=== PATIENT | male | born 1945 | race American Indian/Alaskan Native ===

== ENCOUNTER 2017-11-15 10:45 | Emergency (ER) | payer MEDICARE ==
[2017-11-15 11:21] VITALS: BP 120/67
--- NOTE | 2017-11-15 14:14 | Emergency Department Report ---
ED Extremity Problem HPI - General Chief complaint: Extremity Injury, Lower Stated complaint: NUMBNESS IN LEGS Time Seen by Provider: 11/15/17 14:09 Source: patient Mode of arrival: Ambulatory Limitations: No Limitations - History of Present Illness Initial comments: For the past 6 days, patient has had right lower leg decreased sensation. Denies trauma. Has been walking without difficulty. Has mild intermittent lower back pain. No history of incontinence. Never has had this before. Denies h/o diabetes. - Related Data Previous Rx's Medication Instructions Recorded Last Taken Type Prednisone 50 mg PO DAILY #4 tablet 11/15/17 Unknown Rx Allergies Allergy/AdvReac Type Severity Reaction Status Date / Time No Known Allergies Allergy Unverified 11/15/17 11:17 ED Review of Systems ROS: Stated complaint: NUMBNESS IN LEGS Other details as noted in HPI Comment: All other systems reviewed and negative Musculoskeletal: back pain Neurological: numbness. denies: abnormal gait ED Past Medical Hx - Past Medical History Previous Medical History?: Yes Hx Hypertension: Yes - Surgical History Past Surgical History?: No - Social History Smoking Status: Former Smoker Substance Use Type: Alcohol - Medications Home Medications: Home Medications Medication Instructions Recorded Confirmed Last Taken Type Prednisone 50 mg PO DAILY #4 tablet 11/15/17 Unknown Rx ED Physical Exam - General Limitations: No Limitations General appearance: alert, in no apparent distress - Head Head exam: Present: atraumatic, normocephalic - Eye Eye exam: Present: normal appearance - ENT ENT exam: Present: mucous membranes moist - Neck Neck exam: Present: normal inspection - Respiratory Respiratory exam: Absent: respiratory distress - Cardiovascular Cardiovascular Exam: Absent: systolic murmur, diastolic murmur, rubs, gallop - GI/Abdominal GI/Abdominal exam: Present: soft - Rectal Rectal exam: Present: deferred - Extremities Exam Extremities exam: Present: normal inspection - Expanded Lower Extremity Exam Right Hip exam: Present: normal inspection Upper Leg exam: Present: normal inspection Knee exam: Present: normal inspection Lower Leg exam: Absent: tenderness, swelling Ankle exam: Present: normal inspection Foot/Toe exam: Present: normal inspection Neuro vascular tendon exam: Present: no vascular compromise Gait: Positive: observed and normal - Back Exam Back exam: Present: normal inspection - Neurological Exam Neurological exam: Present: alert, oriented X3 - Psychiatric Psychiatric exam: Present: normal affect, normal mood - Skin Skin exam: Present: warm, dry, intact, normal color. Absent: rash ED Course Vital Signs 11/15/17 11:17 Temperature 98 F Pulse Rate 80 Respiratory 18 Rate Blood Pressure 120/67 O2 Sat by Pulse 97 Oximetry ED Medical Decision Making - Medical Decision Making 72-year-old male with history of hypertension that presents to the ER with right lower leg decreased sensation. Patient is well-appearing. Vitals are stable. Walking without difficulty. The extremity strength is 5 out of 5. No saddle anesthesia. Symptoms are not made worse with leg raise. Right foot is neurovascular intact. On clinical exam, patient has decreased sensation on his distal right lower leg on the dorsal surface of his lip. No evidence of vascular compromise or cauda equina. Patient denies history of trauma. No indication for imaging at this time. Likely patient suffering from radicular symptoms. We'll try a course of steroids. Patient will follow-up with his family doctor for reevaluation. Has been told to come back to the ER if the numbness starts spreading up his leg. He has no complaints with the left leg. - Differential Diagnosis cauda equina, claudication, arterial insufficiency, DVT, fracture Critical care attestation.: If time is entered above; I have spent that time in minutes in the direct care of this critically ill patient, excluding procedure time. ED Disposition Clinical Impression: Radiculopathy of leg Disposition: DC-01 TO HOME OR SELFCARE Is pt being admited?: No Does the pt Need Aspirin: No Condition: Stable Instructions: Lumbar Radiculopathy (ED) Additional Instructions: Please follow up with her family doctor for reevaluation. If the numbness starts spreading up your leg, return to the ER immediately. Prescriptions: Prednisone 50 mg PO DAILY #4 tablet
[2017-11-15] MEDS ORDERED: DELTASONE PO ONE (14:16)
== END 2017-11-15 14:30 | disposition home or self-care (01) ==
LOC: ED 10:45
DX: M54.16 Radiculopathy, lumbar region (principal); I10 Essential (primary) hypertension; Z87.891 Personal history of nicotine dependence
CPT/HCPCS: 99282; J7512

== ENCOUNTER 2017-12-21 07:00 | Inpatient (IN) | payer MEDICARE ==
[2017-12-21] MEDS ORDERED: DIPRIVAN 10 MG/ML IV ONE ×2 (09:07→09:39)
[2017-12-21] MEDS ORDERED: XYLOCAINE MPF 2% ONE ×2 (09:08→09:40)
[2017-12-21] MEDS ORDERED: ZEMURON IV ONE ×2 (09:08→09:40)
[2017-12-21] MEDS ORDERED: ZOFRAN ONE ×2 (09:08→14:19)
[2017-12-21] MEDS ORDERED: DILAUDID ONE ×2 (09:09→10:50)
--- NOTE | 2017-12-21 09:11 | Anesthesia Day of Surgery ---
Anesthesia Day of Surgery - Day of Surgery Patient Examined: Yes Patient H&P Reviewed: Yes Patient is NPO: Yes Beta Blockers: No Cardiac Clearance: No Pulmonary Clearance: No
[2017-12-21] MEDS ORDERED: FLAGYL 500 MG/100 ML 500 MG/100 ML BAG IV NR (09:13)
[2017-12-21] MEDS ORDERED: ANCEF/STERILE WATER 2 GM/20 ML IV NR (09:13)
--- NOTE | 2017-12-21 09:13 | Anesthesia Consultation ---
Anesthesia Consult and Med Hx - Airway Anesthetic Teeth Evaluation: Good ROM Head & Neck: Adequate Intubation Access Assessment: Good - Pulmonary Exam CTA: Yes - Cardiac Exam Cardiac Exam: RRR - Pre-Operative Health Status ASA Pre-Surgery Classification: ASA3 Proposed Anesthetic Plan: General (colon mass) - Pulmonary Hx Smoking: Yes (QUIT IN 2009) - Cardiovascular System Hx Hypertension: Yes (10 YEARS) - Central Nervous System Hx Back Pain: Yes Hx Psychiatric Problems: Yes - Hematic Hx Anemia: Yes - Other Systems Hx Alcohol Use: Yes (OCCA BEER) Hx Substance Use: No Hx Cancer: No
[2017-12-21] MEDS ORDERED: NACL BACTERIOSTATIC INFILTRATI ONE (09:15)
[2017-12-21] MEDS ORDERED: ePHEDrine 50 MG/5 ML-0.9% NACL IV ONE (09:22)
[2017-12-21] MEDS ORDERED: SUBLIMAZE ONE ×2 (09:39→13:15)
[2017-12-21] MEDS ORDERED: MARCAINE 0.25% INFILTRATI ONE ×2 (09:43→12:09)
[2017-12-21] MEDS ORDERED: XYLOCAINE 1% 20 mL ONE (09:43)
[2017-12-21] MEDS ORDERED: NACL 0.9% 1000 ML 1,000 ML IV SCH (10:00)
[2017-12-21] MEDS ORDERED: HEPARIN SUB-Q NR (10:03)
[2017-12-21 10:15] LABS: BUN/Creatinine Ratio 18; Blood Urea Nitrogen 11 mg/dL (9-20); Calcium 9.4 mg/dL (8.4-10.2); Hemolysis Index 14
[2017-12-21 10:30] LABS: Hematocrit 32.2 % (35.5-45.6); Mean Corpuscular HGB Conc 28 % (32-34); Mean Corpuscular Hemoglobin 18 pg (28-32); Mean Corpuscular Volume 64 fl (84-94); Platelet Count 410 K/mm3 (140-440); Red Blood Count 5.06 M/mm3 (3.65-5.03); Red Cell Distribution Width 28.2 % (13.2-15.2)
[2017-12-21] MEDS ORDERED: DECADRON ONE (10:51)
[2017-12-21] MEDS ORDERED: NEO SYNEPHRINE/NS Syringe(OR USE) IV ONE (11:03)
[2017-12-21 11:18] LABS: Total Cells Counted 100
[2017-12-21 11:20] LABS: Anisocytosis 2+
[2017-12-21 11:21] LABS: Hypochromasia 3+; Platelet Estimate Cons
[2017-12-21] MEDS ORDERED: XYLOCAINE 1% 20 mL INFILTRATI ONE (12:09)
[2017-12-21] MEDS ORDERED: NACL 0.9% IR ONE (12:09)
[2017-12-21] MEDS ORDERED: ROBINUL ONE (14:19)
[2017-12-21] MEDS ORDERED: BLOXIVERZ ONE (14:19)
[2017-12-21] MEDS ORDERED: ANCEF ONE (14:33)
[2017-12-21] MEDS ORDERED: LACTATED RINGERS 1,000 ML ONE (14:49)
[2017-12-21] MEDS ORDERED: ZOFRAN IV PRN (14:59)
[2017-12-21] MEDS ORDERED: D5W/0.45% NACL/KCL 20 MEQ 20 MEQ/1,000 ML BAG IV SCH (15:00)
[2017-12-21] MEDS ORDERED: DILAUDID IV PRN ×2 (15:03→17:49)
--- NOTE | 2017-12-21 15:06 | Post Operative Note ---
Date of procedure: 12/21/17 (Dictation#[id number]) Pre-op diagnosis: Right colon mass Post-op diagnosis: same Findings: tattoo in mid right colon. dense adhesions in ileocecal area. Dense attachments in hepatic flexure area. Procedure: Lap Right colon resection Anesthesia: SYED Surgeon: SID HERRERA Director Business Intelligence: CARLIE VASQUEZ Estimated blood loss: minimal Pathology: list (right colon) Specimen disposition: to lab Condition: stable Disposition: PACU
[2017-12-21] MEDS: DILAUDID IV PRN ×2 (15:40→15:50)
--- NOTE | 2017-12-21 16:24 | Post Anesthesia Evaluation ---
- Post Anesthesia Evaluation Patient Participated: Yes Airway Patent: Yes Stable Respiratory Function: Yes Nausea/Vomiting: No Pain Manageable: Yes Adequeate Hydration: Yes Anesthesia Complications: No Block Receding Appropriately: No Patient on Ventilator: No
[2017-12-21] MEDS: TORADOL IV SCH ×2 (17:39→23:22)
[2017-12-21] MEDS ORDERED: PNEUMOVAX 23 IM ONE (19:59)
[2017-12-21] MEDS: PEPCID IV SCH (21:44)
--- NOTE | 2017-12-21 21:46 | Operative Report ---
PREOPERATIVE DIAGNOSIS: Right colon mass with anemia. POSTOPERATIVE DIAGNOSES: Right colon mass with anemia. PROCEDURE: Laparoscopic right hemicolectomy with primary anastomosis (intracorporeal). ATTENDING PHYSICIAN: Lamont Matthews MD COMMODITY TRADER: Dr. Sifuentes. ANESTHESIA: General. ESTIMATED BLOOD LOSS: Minimal. FLUIDS: 1 liter. FINDINGS: Tattoo antonio in colon was in the right mid colon. Dense adhesions were noted in the ileocecal region as well as the hepatic flexure and the patient had a very large and thick omentum as well as significant mesenteric fat tissue. SPECIMEN: Right colon. DRAINS: None. COMPLICATIONS: None. Stable, transported to Recovery. INDICATIONS: This is a 72-year-old male who originally presented to the Emergency Room after a fall. He was found to be severely anemic. Workup revealed right colon mass. The patient was assessed to be in need for resection. Biopsy results came back as tubular adenoma. In discussion with the supervisor dental laboratory, he said the mass was very long and large. He would be unable to remove it completely. He recommended resection for complete evaluation and to minimize his risk of any small cancer that may remain. Procedure, risks, benefits were explained to the patient. Risks included but were not limited to infection, bleeding, pain, injury to surrounding structures, possible need for open surgery, possible need for ostomy, possible need for further procedures in the future. The patient understood and consented. OPERATIVE NOTE: The patient was brought to the operating room and placed on the table in supine position. After adequate general anesthesia was established, the patient was prepped and draped in the usual sterile fashion. Antibiotics had been given prior to start of the case. SCDs were in place. I began by placing a Veress needle in the left upper quadrant. Once we insufflated the abdomen, a 5 mm port was placed in the right lower quadrant. I entered the peritoneal cavity safely. We could see that the Veress needle did not injure any underlying structures. Veress needle was removed. We then placed a 12 mm port in the suprapubic region in the midline, 12-mm port in the left lower quadrant, and a 5 mm port in the left upper quadrant. We began by examining the abdomen. I saw no evidence of any metastatic spread of cancer. Liver appeared normal. There were no peritoneal implants: Appeared normal outside. We did see the tattoo antonio, which was in the mid body of the colon. Everything else appeared normal. We began by placing the omentum over the liver edge and then holding it there with the anesthesiologist assistant certified grasper. The patient was placed in reverse Trendelenburg and rotated to his left. Small bowel tried to be placed into the left side of the abdomen. However, all the small bowel would not sit there. It kept coming back towards the center. I began by identifying the ileocolic vessels. I dissected each out. Two clips were placed proximally, one distally on each vessel, and then were divided with the LigaSure device. We could see where the duodenum was. We planned our course of dissection towards that. We could also identify the middle colic vessels. Therefore, we used that as a landmark as well to take the dissection through the mesentery up to the colon. Once a small opening was made, we then did the medial dissection. We identified the correct plane between the retroperitoneum and the mesentery, it dissected fairly easily. There were little bit stronger adhesions, but otherwise they dissected okay where I encountered the right colic, which we clipped and divided with the LigaSure device, and then eventually the right middle colic, which we clipped and divided with the LigaSure device. Once most of this dissection was done, we then went above the colon, transverse colon to enter the lesser sac. We entered safely. We performed a dissection there. I removed the right half of the omentum attachment to the transverse colon and laid it off to the left side. At this point, we turned our attention to the lateral mobilization going along the white line of Toldt. I was able to enter this plane and have a nice dissection laterally of the colon. We encountered extra difficulty doing the dissection due to dense adhesions at the hepatic flexure and the ileocecal region. Extra care was taken. We had to manipulate the colon in different positions to get good visualization, but eventually we were able to safely divide all the connections. We divided the colon with a 60 mm laparoscopic stapler using a blue load and then we divided the small bowel near the TI with the similar stapler using a blue load. Specimen was placed in an EndoCatch bag, left on the side. We examined the retroperitoneal surface. The fascia was completely intact. We saw no bleeding. There was no hematoma formation. There were no tears. I was confident we had stayed in the right flank and there was no injury to the underlying structures. We then positioned the transverse colon and the small bowel to see how best it would lie. We made enterotomies into both, then using the 60 mm laparoscopic stapler with a blue load, I created an enterocolostomy. We closed the opening with the EndoStitch using the V-Loc 0 Vicryl suture. I ran the suture from one end of the opening to the other and then I put some additional sutures to support the junction between the colon and the small bowel a little bit away from where the anastomosis was made. I sutured the colon, small bowel together to take any tension off the anastomosis itself. With the same suture, I then tacked down the omentum over that anastomotic area to provide coverage of that area in case there was a small leak. We then cut the Vicryl suture and removed the needle. Everything was very hemostatic. I had no issues or concerns. At this point, I decided to go ahead and close the 12 mm port in the left lower quadrant using the Sanjeev-Rick closure device. We used an 0 Vicryl stitch under direct vision. We closed that space. It was airtight. It looked very good. I then finally turned my attention to removal of the specimen. We extended the suprapubic incision transversely and dissected down. We made a larger opening into the peritoneal cavity. Wound protector was placed. I then brought the EndoCatch bag through the wound protector. We had one Ray-Prema in the abdominal cavity for use in the case. This was removed through the wound protector. I then brought the EndoCatch bag partially through the wound protector. I opened it up and then removed the specimen. We were able to do so relatively easily. Once this was done, we then removed the wound protector using a 0 Prolene stitch. I closed the fascia with a running stitch. We reinsufflated the abdomen. We had an airtight closure. We did not injure any underlying bowel. There was no bowel or omentum adhered to the fascial repair. Everything looked very good. We then removed all the ports under direct vision and desufflated the abdomen. Additional local was injected into the port sites with 4-0 Monocryl subcuticular stitches were used to close the port and the small opening to extract the specimen. Skin was cleaned and dried. Dermabond was placed. The patient tolerated procedure well. There were no complications. All counts were correct at the end of the case. JOB# [id number] KESHA/ZAFAR
[2017-12-22] MEDS: TORADOL IV SCH ×4 (05:07→23:49)
[2017-12-22 08:35] LABS: Hematocrit 25.7 % (35.5-45.6); Hemoglobin 7.6 gm/dl (11.8-15.2); Mean Corpuscular HGB Conc 30 % (32-34); Mean Corpuscular Hemoglobin 19 pg (28-32); Mean Corpuscular Volume 63 fl (84-94); Platelet Count 269 K/mm3 (140-440); Red Blood Count 4.08 M/mm3 (3.65-5.03); Red Cell Distribution Width 27.4 % (13.2-15.2)
[2017-12-22 08:40] LABS: BUN/Creatinine Ratio 15; Blood Urea Nitrogen 12 mg/dL (9-20); Calcium 8.4 mg/dL (8.4-10.2); Hemolysis Index 5
[2017-12-22] MEDS: PEPCID IV SCH ×2 (09:30→21:07)
[2017-12-22] MEDS: LOVENOX SUB-Q SCH (09:30)
[2017-12-22 09:55] LABS: Anisocytosis 2+; Band Neutrophils # (Manual) 0.3 K/mm3; Basophils % (Manual) 0 % (0.0-1.8); Eosinophils % (Manual) 0 % (0.0-4.3); Hypochromasia 3+; Total Cells Counted 100
[2017-12-22 09:56] LABS: Platelet Estimate Consistent w Auto; Schistocytes Rare
[2017-12-22] MEDS ORDERED: KCL 10MEQ/100ML 10 MEQ/100 ML BAG IV PRN ×2 (11:12)
[2017-12-22] MEDS ORDERED: MAGNESIUM SULFATE 2GM/50ML 2 GM/50 ML BAG IV PRN (11:12)
[2017-12-22] MEDS ORDERED: SODIUM PHOSPHATE 30 MMOL in NACL 0.9% 500 ML 250 ML IV PRN (11:12)
[2017-12-22] MEDS ORDERED: MAGNESIUM SULFATE 4GM/100ML 4 GM/100 ML BAG IV PRN (11:12)
[2017-12-22] MEDS ORDERED: MAGNESIUM SULFATE 1 GM in NACL 0.9% 50 ML IV PRN (11:12)
[2017-12-22] MEDS ORDERED: SODIUM PHOSPHATE 15 MMOL in NACL 0.9% 250ML 150 ML IV PRN (11:12)
[2017-12-22] MEDS ORDERED: NORCO 5/325 PO PRN (11:18)
--- NOTE | 2017-12-22 11:22 | Progress Note ---
Assessment and Plan - Patient Problems (1) Colonic mass Current Visit: No Status: Acute Plan to address problem: Pt. Stable. s/p Lap Right hemicolectomy. 12/21/17 - POD#1. Pt looks good. No concerns. Hgb drop probably due to some OR loss and dilutional. Clinically looks good. REcheck in the AM. 1) HL IV later today 2) Replace K 3) REcheck CBC in AM 4) Clears tonight. 5) Ambulate Subjective Date of service: 12/22/17 Patient Reports: Positive: feels better, pain is less. Negative: nausea, vomiting Objective Vital Signs - 12hr 12/22/17 12/22/17 00:03 03:59 Temperature 98.5 F 98.8 F Pulse Rate 76 79 Respiratory 20 20 Rate Blood Pressure 116/67 116/58 O2 Sat by Pulse 94 94 Oximetry - General physical appearance no distress, no pain - Eyes normal occular movement - Respiratory normal expansion, normal respiratory effort - Abdomen soft, not tender, not distended, not guarding, not rigid, surgical scars (C/D/I) - Integumentary no rash, no growths, no abnormal pigmentation - Psychiatric oriented to time, oriented to person, oriented to place, speech is normal, memory intact - Labs 12/22/17 07:28 12/22/17 07:28 Diabetes panel 12/22/17 Range/Units 07:28 Sodium 139 (137-145) mmol/L Potassium 3.5 L (3.6-5.0) mmol/L Chloride 100.5 (98-107) mmol/L Carbon Dioxide 26 (22-30) mmol/L BUN 12 (9-20) mg/dL Creatinine 0.8 (0.8-1.5) mg/dL Glucose 104 H (75-100) mg/dL Calcium 8.4 (8.4-10.2) mg/dL Calcium panel 12/22/17 Range/Units 07:28 Calcium 8.4 (8.4-10.2) mg/dL Pituitary panel 12/22/17 Range/Units 07:28 Sodium 139 (137-145) mmol/L Potassium 3.5 L (3.6-5.0) mmol/L Chloride 100.5 (98-107) mmol/L Carbon Dioxide 26 (22-30) mmol/L BUN 12 (9-20) mg/dL Creatinine 0.8 (0.8-1.5) mg/dL Glucose 104 H (75-100) mg/dL Calcium 8.4 (8.4-10.2) mg/dL Adrenal panel 12/22/17 Range/Units 07:28 Sodium 139 (137-145) mmol/L Potassium 3.5 L (3.6-5.0) mmol/L Chloride 100.5 (98-107) mmol/L Carbon Dioxide 26 (22-30) mmol/L BUN 12 (9-20) mg/dL Creatinine 0.8 (0.8-1.5) mg/dL Glucose 104 H (75-100) mg/dL Calcium 8.4 (8.4-10.2) mg/dL
[2017-12-22] MEDS: K-DUR PO PRN ×2 (12:13→15:05)
[2017-12-23] MEDS: TORADOL IV SCH ×3 (05:32→18:19)
[2017-12-23 07:57] LABS: Hemoglobin 7.5 gm/dl (11.8-15.2); Mean Corpuscular HGB Conc 28 % (32-34); Mean Corpuscular Hemoglobin 18 pg (28-32); Mean Corpuscular Volume 64 fl (84-94); Platelet Count 233 K/mm3 (140-440); Red Blood Count 4.25 M/mm3 (3.65-5.03); Red Cell Distribution Width 27.4 % (13.2-15.2)
--- NOTE | 2017-12-23 09:34 | Progress Note ---
Assessment and Plan - Patient Problems (1) Colonic mass Current Visit: No Status: Acute Plan to address problem: Pt. Stable. s/p Lap Right hemicolectomy. 12/21/17 - POD#2. Pt looks good. No concerns. hgb stable. 1) soft diet for dinner 2) Begin Iron supplement 3) stool softener 4) possible d/c home tomorrow. Subjective Date of service: 12/23/17 Patient Reports: Positive: no new complaints, feels better, pain is less, tolerating liquids well, bowel movement. Negative: nausea, vomiting Objective Vital Signs - 12hr 12/22/17 12/22/17 12/23/17 22:00 23:49 00:58 Temperature 99.5 F Pulse Rate 85 Respiratory 18 18 17 Rate Respiratory 18 Rate [Right Leg ] Blood Pressure 109/81 O2 Sat by Pulse 95 Oximetry 12/23/17 12/23/17 12/23/17 04:01 04:02 05:32 Temperature 98.0 F Pulse Rate 80 78 Respiratory 20 18 Rate Respiratory Rate [Right Leg ] Blood Pressure 118/53 O2 Sat by Pulse 96 96 Oximetry 12/23/17 08:14 Temperature 98.7 F Pulse Rate 72 Respiratory 18 Rate Respiratory Rate [Right Leg ] Blood Pressure 128/74 O2 Sat by Pulse 96 Oximetry - General physical appearance no distress, no pain, other (looks great) - Eyes normal occular movement - Respiratory normal expansion, normal respiratory effort - Abdomen soft, not tender, bowel sounds hypoactive, not distended, not guarding, not rigid, surgical scars (C/D/I) - Integumentary no rash, no growths, no abnormal pigmentation - Psychiatric oriented to time, oriented to person, oriented to place, speech is normal, memory intact - Labs 12/23/17 06:28 12/22/17 16:37 Diabetes panel 12/22/17 Range/Units 16:37 Potassium 4.1 (3.6-5.0) mmol/L Pituitary panel 12/22/17 Range/Units 16:37 Potassium 4.1 (3.6-5.0) mmol/L Adrenal panel 12/22/17 Range/Units 16:37 Potassium 4.1 (3.6-5.0) mmol/L
--- NOTE | 2017-12-23 09:39 | Discharge Summary ---
Providers - Providers Date of Admission: 12/21/17 08:05 Date of discharge: 12/24/17 Attending physician: SID HERRERA MD 12/22/17 08:36 Physical Therapy Evaluation and Treat [CONS] Routine Comment: S/P COLON RESECTION Reason For Exam: Generalized weakness Primary care physician: NANOSCIENCE TECHNICIAN Hospitalization Reason for admission: Scheduled Surgical Procedure Condition: Stable Pertinent studies: none Procedures: Laparoscopic Right hemicolectomy Hospital course: Patient was admitted on day of surgery. There were no issues during surgery. Postoperatively, hospital course was uneventful. Dietrich catheter was removed the following morning. He was on Lovenox for prophylaxis. This diet was advanced without difficulty. He had a bowel movement on postoperative day one. He was ambulating without difficulty. Pain was minimal. He was discharged in stable condition. Pathology showed only tubular adenoma. No evidence of cancer. Disposition: DC-01 TO HOME OR SELFCARE Time spent for discharge: 30min - Discharge Diagnoses (1) Colonic mass Status: Acute Core Measure Documentation - Palliative Care Palliative Care/ Comfort Measures: Not Applicable - Core Measures Any of the following diagnoses?: none - VTE Discharge Requirements Deep Vein Thrombosis/Pulmonary Embolism Present on Admission: No Exam - Constitutional Vitals: Temp Pulse Resp BP Pulse Ox 98.7 F 72 18 128/74 96 12/23/17 08:14 12/23/17 08:14 12/23/17 08:14 12/23/17 08:14 12/23/17 08:14 General appearance: Present: no acute distress, well-nourished - EENT Eyes: Present: EOM intact - Respiratory Respiratory effort: normal - Extremities Extremities: No edema, normal temperature, normal color - Abdominal General gastrointestinal: Present: soft, non-tender, non-distended, other ( Incisions C/D/I) - Integumentary Integumentary: Present: clear, warm, dry - Psychiatric Psychiatric: appropriate mood/affect, intact judgment & insight Plan Diet: regular Wound: open to air, keep clean and dry, other (May shower today. Pat dry wounds. No baths!) Special Instructions: no heavy lifting (or strenuous activity for 6 weeks) Follow up with: ELY YAN MD [Primary Care Provider] - 7 Days SID HERRERA MD [Staff Physician] - 14 Days Prescriptions: Sennosides Tab [Senokot] 8.6 mg PO QHS #14 tablet HYDROcodone/APAP 5-325 [[place] 5-325 mg TAB] 1 each PO Q6H PRN #20 tablet PRN Reason: Pain, Moderate (4-6)
[2017-12-23] MEDS: PEPCID IV SCH ×2 (10:30→21:52)
[2017-12-23] MEDS: LOVENOX SUB-Q SCH (10:30)
[2017-12-23] MEDS: FERGON PO SCH (10:30)
[2017-12-23] MEDS ORDERED: SENOKOT PO SCH (22:00)
[2017-12-24] MEDS: TORADOL IV SCH ×2 (02:59→06:05)
[2017-12-24] MEDS: PEPCID IV SCH (09:19)
[2017-12-24] MEDS: FERGON PO SCH (09:19)
[2017-12-24] MEDS: LOVENOX SUB-Q SCH (09:19)
[2017-12-24 14:35] VITALS: BP 113/68
== END 2017-12-24 15:00 | disposition home or self-care (01) | DRG 330 ==
LOC: 3A 08:05 → 3B-SURG 15:47
PROVIDERS: ADMIT Surgery; ATTEND Surgery
PROC: 0DTF4ZZ Resection of Right Large Intestine, Percutaneous Endoscopic Approach (ICD-10-PCS; principal; 2017-12-21)
PROC: 0DNB4ZZ Release Ileum, Percutaneous Endoscopic Approach (ICD-10-PCS; 2017-12-21)
PROC: 3E0234Z Introduction of Serum, Toxoid and Vaccine into Muscle, Percutaneous Approach (ICD-10-PCS; 2017-12-21)
DX: D12.2 Benign neoplasm of ascending colon (principal); D62 Acute posthemorrhagic anemia; K63.89 Other specified diseases of intestine; I10 Essential (primary) hypertension; F32.9 Major depressive disorder, single episode, unspecified; K66.0 Peritoneal adhesions (postprocedural) (postinfection); M19.90 Unspecified osteoarthritis, unspecified site; E88.2 Lipomatosis, not elsewhere classified; Z87.891 Personal history of nicotine dependence; Z72.89 Other problems related to lifestyle; Z23 Encounter for immunization
CPT/HCPCS: 36415; 80048; 84132; 85007; 85025; 85027; 86850; 86900; 86901; 88307; 88309; 90732; J0690; J1100; J1170; J1644; J1650; J1885; J2370; J2405; J2704; J2710; J3010; J3475; J3480; J7030; J7120

== ENCOUNTER 2018-09-27 07:15 | Day surgery (SDC) | payer MEDICARE ==
[~2018-09-27 07:15] MED LIST: ANCEF/STERILE WATER 2 GM/20 ML 2 GM/20 ML SYRINGE IV NR; LACTATED RINGERS 1,000 ML IV SCH; NEURONTIN PO SCH; TYLENOL PO ONE
[2018-09-27] MEDS ORDERED: XYLOCAINE MPF 2% ONE (07:50)
[2018-09-27] MEDS ORDERED: SUBLIMAZE ONE (07:51)
[2018-09-27] MEDS ORDERED: DIPRIVAN 10 MG/ML IV ONE (07:52)
[2018-09-27] MEDS ORDERED: VERSED IV NR (08:06)
[2018-09-27] MEDS ORDERED: SUBLIMAZE IV PRN (08:25)
--- NOTE | 2018-09-27 08:27 | Anesthesia Consultation ---
Anesthesia Consult and Med Hx Date of service: 09/27/18 - Airway Anesthetic Teeth Evaluation: Dentures ROM Head & Neck: Adequate Mental/Hyoid Distance: Adequate Mallampati Class: Class III Intubation Access Assessment: Possibly Difficult - Pulmonary Exam CTA: Yes - Cardiac Exam Cardiac Exam: RRR - Pre-Operative Health Status ASA Pre-Surgery Classification: ASA2 Proposed Anesthetic Plan: MAC - Pulmonary Hx Smoking: Yes (quit x 11 yrs) Hx Respiratory Symptoms: No COPD: No - Cardiovascular System Hx Hypertension: Yes (no antihypertensives today) Hx Heart Attack/AMI: No Hx Percutaneous Transluminal Coronary Angioplasty (PTCA): No - Central Nervous System CVA: No Hx Back Pain: Yes Hx Psychiatric Problems: Yes - Gastrointestinal Hx Gastroesophageal Reflux Disease: No - Endocrine Hx Renal Disease: No Hx Liver Disease: No Hx Insulin Dependent Diabetes: No Hx Non-Insulin Dependent Diabetes: No Hx Thyroid Disease: No - Hematic Hx Anemia: Yes - Other Systems Hx Alcohol Use: Yes (OCCA BEER) Hx Obesity: No - Additional Comments Anesthesia Medical History Comments: No hx anesthetic complications.
--- NOTE | 2018-09-27 08:27 | Anesthesia Day of Surgery ---
Anesthesia Day of Surgery - Day of Surgery Patient Examined: Yes Patient H&P Reviewed: Yes Patient is NPO: Yes
[2018-09-27] MEDS ORDERED: TYLENOL PO ONE (08:30)
[2018-09-27] MEDS ORDERED: XYLOCAINE 1%/ EPI 1:100,000 INFILTRATI ONE ×3 (09:26→09:54)
[2018-09-27] MEDS ORDERED: MARCAINE 0.5% INFILTRATI ONE ×2 (09:54)
[2018-09-27] MEDS ORDERED: NACL 0.9% IR ONE (09:54)
[2018-09-27] MEDS ORDERED: TORADOL ONE (10:16)
[2018-09-27] MEDS ORDERED: ZOFRAN ONE (10:16)
--- NOTE | 2018-09-27 10:47 | Short Stay Summary ---
Short Stay Documentation Date of service: 09/27/18 - History H&P: obtained from office - Allergies and Medications Current Medications: Allergies No Known Allergies Allergy (Verified 09/26/18 17:35) Home Medications Medication Instructions Recorded Confirmed Last Taken Type Ferrous Sulfate 325 mg PO BID #60 tablet. 11/22/17 09/27/18 07/30/18 Rx Mirtazapine 15 mg PO QHS 09/26/18 09/27/18 09/26/18 History hydroCHLOROthiazide [HCTZ] 25 mg PO DAILY 09/26/18 09/27/18 09/27/18 04:45 History Active Medications Fentanyl (Sublimaze) 50 mcg IV Q5MIN PRN PRN Reason: Pain , Severe (7-10) Stop: 09/27/18 20:00 Gabapentin (Neurontin) 600 mg PO PREOP BRIAN Last Admin: 09/27/18 08:42 Dose: 600 mg Documented by: Cefazolin Sodium (Ancef/Sterile Water 2 Gm/20 Ml) 2 gm in 20 mls @ 80 mls/hr IV PREOP NR; Protocol Stop: 09/27/18 23:59 Lactated Ringer's (Lactated Ringers) 1,000 mls @ 75 mls/hr IV DIRECT BRIAN Last Admin: 09/27/18 08:05 Dose: 75 mls/hr Documented by: Midazolam HCl (Versed) 2 mg IV PREOP NR Stop: 09/27/18 23:59 Last Admin: 09/27/18 08:50 Dose: 2 mg Documented by: - Physical exam General appearance: no acute distress Lungs: Normal air movement Neurological: Normal speech - Brief post op/procedure progress note Date of procedure: 09/27/18 (dictation:[id number]) Pre-op diagnosis: right neck soft tissue mass Post-op diagnosis: same Procedure: Excision of right neck soft tissue mass IVF 700cc Anesthesia: GETA Findings: soft, lipomatous mass in the subcutaneous tissue. About 3cm in longest length Surgeon: SID HERRERA Estimated blood loss: minimal Pathology: list (lipomatous mass) Specimen disposition: to lab Condition: stable - Disposition Condition at discharge: Stable Disposition: DC-01 TO HOME OR SELFCARE Short Stay Discharge Plan Activity: advance as tolerated Diet: regular Wound: open to air, keep clean and dry, other (apply ice pack to wound for 10-15min/4-5 times a day. May shower tomorrow. Pat dry wound. ) Special Instructions: no heavy lifting (or strenuous activity for 1 week) Follow up with: CHARAN GILLILAND MD [Primary Care Provider] - 7 Days SID HERRERA MD [Staff Physician] - 14 Days Forms: [facility]patient [facility] Inst[facility] Work/School Release Form Prescriptions: HYDROcodone/ACETAMINOPHEN [[place] 5-325 Tablet] 1 each PO Q6H PRN #20 tablet PRN Reason: Pain , Severe (7-10)
--- NOTE | 2018-09-27 12:37 | Operative Report ---
PREOPERATIVE DIAGNOSIS: Right neck soft tissue mass. POSTOPERATIVE DIAGNOSIS: Right neck soft tissue mass. PROCEDURE: Excision of right neck soft tissue mass. ATTENDING PHYSICIAN: Lamont Matthews MD ANESTHESIA: General. ESTIMATED BLOOD LOSS: Minimal. FLUIDS: 700 mL. FINDINGS: Lipomatous mass about 3 cm in longest dimension in the subcutaneous layer of the right posterior neck. SPECIMEN: Lipomatous mass. DRAINS: None. COMPLICATIONS: None. DISPOSITION: Stable, transferred to Recovery Room. INDICATIONS: This is a 73-year-old male who we had known before after performing colon surgery. He returns with complaints of discomfort and irritation from a mass in his neck. The patient was assessed to have probable lipoma that was in need of excision. Due to the location, we felt it would be best to be performed in the operating room. Procedure, risks, and benefits were explained to the patient. Risks included but were not limited to infection, bleeding, pain, injury to surrounding structures, possible need for further procedures in the future. The patient understood and consented. OPERATIVE PROCEDURE: The patient was brought to the operating room and placed on the table in supine position. After adequate general anesthesia was established, the patient was prepped and draped in usual sterile fashion. The patient was in a left lateral decubitus position. All pressure points were secured. Axillary roll was placed. He was secured with a beanbag. SCDs were in place. Antibiotics have been given. Timeout was called. The mass and skin lines were already marked out in the preop holding area. I confirmed where the skin lines were and then placed my incision in the general direction. Dissection was carried down through the skin and dermis to the mass. The mass was very superficial. We dissected out from the surrounding tissue. This was a fairly distinct mass with a little bit of regular subcutaneous tissue around it. We dissected it with a combination of blunt and electrocautery dissection to separate from the surrounding tissue. Once , it was passed off table in sterile fashion. We checked the area for hemostasis. We had fairly good hemostasis. The wound was thoroughly irrigated. I used 3-0 Vicryl to close the subcutaneous and deep layers with a running stitch. Local was injected and then we closed the skin with a running 4-0 Monocryl subcuticular stitch. Skin was cleaned and dried. Dermabond was placed. The patient tolerated procedure well. There were no complications. All counts were correct at the end of the case. I spoke to the at the end of the case. JOB# [id number] KESHA/ZAFAR
--- NOTE | 2018-09-27 14:15 | Post Anesthesia Evaluation ---
- Post Anesthesia Evaluation Patient Participated: Yes Airway Patent: Yes Stable Respiratory Function: Yes Nausea/Vomiting: No Temp > 96.8F: Yes Pain Manageable: Yes Adequeate Hydration: Yes Anesthesia Complications: No
[2018-09-27 20:43] VITALS: BP 106/59
== END 2018-09-27 07:16 | disposition home or self-care (01) ==
LOC: OR 07:15
PROVIDERS: ATTEND Surgery
DX: D17.0 Benign lipomatous neoplasm of skin and subcutaneous tissue of head, face and neck (principal); D50.0 Iron deficiency anemia secondary to blood loss (chronic); I10 Essential (primary) hypertension; M19.90 Unspecified osteoarthritis, unspecified site; F32.9 Major depressive disorder, single episode, unspecified; Z72.89 Other problems related to lifestyle; Z79.899 Other long term (current) drug therapy; Z87.891 Personal history of nicotine dependence
CPT/HCPCS: 21552; 88307; A4217; J0690; J1885; J2250; J2405; J2704; J3010; J7120; 88304

== ENCOUNTER 2019-12-23 08:08 | Emergency (ER) | payer MEDICARE ==
[2019-12-23 08:15] VITALS: BP 130/61
--- NOTE | 2019-12-23 11:08 | Emergency Department Report ---
ED General Adult HPI - General Chief complaint: Extremity Problem,Nontraumatic Stated complaint: LEG PAIN Time Seen by Provider: 12/23/19 09:44 Source: patient Mode of arrival: Ambulatory Limitations: No Limitations - History of Present Illness Initial comments: 74-year-old male with emergency department complaining of continued leg aches he was seen here on yesterday for leg swelling reports that there is been no worsening in symptoms no change in symptoms states is primarily reasons that he is hungry and he is homeless and his kicked him out of the house on 15 December he had no place to go at the time inquiring about the times that we serve lunch and if we can do anything to help him with food and give him some Tylenol or Motrin at current for his pain - Related Data Home Medications Medication Instructions Recorded Confirmed Last Taken Mirtazapine 15 mg PO QHS 09/26/18 12/22/19 2 Days Ago ~12/20/19 7.5 hydroCHLOROthiazide [HCTZ] 25 mg PO DAILY 09/26/18 12/22/19 2 Days Ago ~12/20/19 Allergies Allergy/AdvReac Type Severity Reaction Status Date / Time No Known Allergies Allergy Verified 09/26/18 17:35 ED Review of Systems ROS: Stated complaint: LEG PAIN Other details as noted in HPI Comment: All other systems reviewed and negative ED Past Medical Hx - Past Medical History Previous Medical History?: Yes Hx Hypertension: Yes Hx Heart Attack/AMI: No Hx Liver Disease: No Hx Renal Disease: No Hx Arthritis: Yes Hx COPD: No Hx HIV: No - Social History Smoking Status: Never Smoker Substance Use Type: None - Medications Home Medications: Home Medications Medication Instructions Recorded Confirmed Last Taken Type Mirtazapine 15 mg PO QHS 09/26/18 12/22/19 2 Days Ago History ~12/20/19 7.5 hydroCHLOROthiazide [HCTZ] 25 mg PO DAILY 09/26/18 12/22/19 2 Days Ago History ~12/20/19 25 ED Physical Exam - General Limitations: No Limitations General appearance: alert, in no apparent distress - Head Head exam: Present: atraumatic, normocephalic - Eye Eye exam: Present: normal appearance, PERRL, EOMI Pupils: Present: normal accommodation - ENT ENT exam: Present: normal exam, normal orophraynx, mucous membranes moist, TM's normal bilaterally - Neck Neck exam: Present: normal inspection, full ROM - Respiratory Respiratory exam: Present: normal lung sounds bilaterally. Absent: respiratory distress - Cardiovascular Cardiovascular Exam: Present: regular rate, normal rhythm. Absent: systolic murmur, diastolic murmur, rubs, gallop - GI/Abdominal GI/Abdominal exam: Present: soft, normal bowel sounds - Rectal Rectal exam: Present: deferred - Extremities Exam Extremities exam: Present: normal inspection - Back Exam Back exam: Present: normal inspection - Neurological Exam Neurological exam: Present: alert, oriented X3 - Psychiatric Psychiatric exam: Present: normal affect, normal mood - Skin Skin exam: Present: warm, dry, intact, normal color. Absent: rash ED Course Vital Signs 12/23/19 08:11 Temperature 97.6 F Pulse Rate 88 Respiratory 20 Rate Blood Pressure 130/61 O2 Sat by Pulse 97 Oximetry Critical care attestation.: If time is entered above; I have spent that time in minutes in the direct care of this critically ill patient, excluding procedure time. ED Disposition Clinical Impression: Homeless, Leg swelling Disposition: MED SCREENING EXAM-LEFT Is pt being admited?: No Does the pt Need Aspirin: No Condition: Stable Additional Instructions: Please refer to the handout given for your shelters Referrals: PRIMARY CARE, [Primary Care Provider] - 3-5 Days
== END 2019-12-23 11:49 | disposition left against medical advice (07) ==
LOC: ED 08:08
DX: M79.89 Other specified soft tissue disorders (principal); Z59.0 Homelessness; I10 Essential (primary) hypertension; M19.90 Unspecified osteoarthritis, unspecified site; Z79.899 Other long term (current) drug therapy; Z53.21 Procedure and treatment not carried out due to patient leaving prior to being seen by health care provider

== ENCOUNTER 2020-05-28 20:18 | Emergency (ER) | payer MEDICARE ==
--- NOTE | 2020-05-28 22:18 | Emergency Department Report ---
ED General Adult HPI - General Chief complaint: Extremity Problem,Nontraumatic Stated complaint: LT KNEE PAIN Time Seen by Provider: 05/28/20 22:13 Source: patient Mode of arrival: Ambulatory Limitations: No Limitations - History of Present Illness Initial comments: 74-year-old -[place] male with medical history of chronic left knee pain due to a previously baseball injury about 4 years ago where he was struck in the knee with a baseball presents emerge department complaining of acute on chronic pain flareup after his cane has went missing for unknown reasons. Reports having dull throbbing pain which is worse with palpation and range of motion reports no fever, chills, sweats. No acute injury. -: Gradual Location: lower extremity Radiation: extremity Quality: aching, dull Consistency: constant Improves with: none Worsens with: none Associated Symptoms: denies: confusion, cough, loss of appetite, malaise, nausea/vomiting, seizure, shortness of breath, syncope, weakness Treatments Prior to Arrival: none - Related Data Home Medications Medication Instructions Recorded Confirmed Last Taken Mirtazapine 15 mg PO QHS 09/26/18 12/22/19 2 Days Ago ~12/20/19 7.5 hydroCHLOROthiazide [HCTZ] 25 mg PO DAILY 09/26/18 12/22/19 2 Days Ago ~12/20/19 25 Previous Rx's Medication Instructions Recorded Last Taken Type Meloxicam [Mobic] 15 mg PO DAILY #10 tablet 05/28/20 Unknown Rx Allergies Allergy/AdvReac Type Severity Reaction Status Date / Time No Known Allergies Allergy Verified 09/26/18 17:35 ED Review of Systems ROS: Stated complaint: LT KNEE PAIN Other details as noted in HPI Comment: All other systems reviewed and negative ED Past Medical Hx - Past Medical History Hx Hypertension: Yes Hx Heart Attack/AMI: No Hx Liver Disease: No Hx Renal Disease: No Hx Arthritis: Yes Hx COPD: No Hx HIV: No - Surgical History Past Surgical History?: No - Social History Smoking Status: Never Smoker Substance Use Type: Alcohol - Medications Home Medications: Home Medications Medication Instructions Recorded Confirmed Last Taken Type Mirtazapine 15 mg PO QHS 09/26/18 12/22/19 2 Days Ago History ~12/20/19 7.5 hydroCHLOROthiazide [HCTZ] 25 mg PO DAILY 09/26/18 12/22/19 2 Days Ago History ~12/20/19 25 Meloxicam [Mobic] 15 mg PO DAILY #10 tablet 05/28/20 Unknown Rx ED Physical Exam - General Limitations: No Limitations General appearance: alert, in no apparent distress - Head Head exam: Present: atraumatic, normocephalic - Eye Eye exam: Present: normal appearance - ENT ENT exam: Present: mucous membranes moist - Neck Neck exam: Present: normal inspection - Respiratory Respiratory exam: Present: normal lung sounds bilaterally. Absent: respiratory distress - Cardiovascular Cardiovascular Exam: Present: regular rate, normal rhythm. Absent: systolic murmur, diastolic murmur, rubs, gallop - GI/Abdominal GI/Abdominal exam: Present: soft, normal bowel sounds - Rectal Rectal exam: Present: deferred - Extremities Exam Extremities exam: Present: normal inspection, tenderness, normal capillary refill, joint swelling. Absent: calf tenderness - Expanded Lower Extremity Exam Left Knee exam: Present: full ROM, swelling. Absent: laceration, ecchymosis, dislocation, erythema, pain w/ pronation/supination, posterior draw sign, pain/laxity with valgus Lower Leg exam: Absent: dislocation, palpable cord, Vanessa's sign - Back Exam Back exam: Present: normal inspection - Neurological Exam Neurological exam: Present: alert, oriented X3 - Psychiatric Psychiatric exam: Present: normal affect, normal mood - Skin Skin exam: Present: warm, dry, intact, normal color. Absent: rash Critical care attestation.: If time is entered above; I have spent that time in minutes in the direct care of this critically ill patient, excluding procedure time. ED Disposition Clinical Impression: Chronic knee pain Disposition: DC- TO HOME OR SELFCARE Is pt being admited?: No Does the pt Need Aspirin: No Condition: Stable Instructions: Chronic Knee Pain, Adult, [id number], Joint Pain Prescriptions: Meloxicam [Mobic] 15 mg PO DAILY #10 tablet Referrals: ALVA PAYNE MD [Staff Physician] - 3-5 Days
[2020-05-28 23:09] VITALS: BP 136/70
== END 2020-05-28 23:08 | disposition home or self-care (01) ==
LOC: ED 20:18
DX: M25.562 Pain in left knee (principal); G89.29 Other chronic pain; M13.88 Other specified arthritis, other site
CPT/HCPCS: 99281

== ENCOUNTER 2020-09-14 19:08 | Emergency (ER) | payer MEDICARE ==
[2020-09-14 19:36] VITALS: BP 135/60
[2020-09-14] MEDS ORDERED: ONDANSETRON 4 MG ODT TAB PO ONE (19:50)
--- NOTE | 2020-09-14 19:50 | Emergency Department Report ---
- General Chief Complaint: Upper Respiratory Infection Stated Complaint: NAUSEA/CONGESTION Source: patient Mode of arrival: Ambulatory Limitations: No Limitations - History of Present Illness Initial Comments: 75-year-old male with a past medical history of hypertension presents to the ER today with complaints of sinus congestion. Patient states that his symptoms started about 4 days ago. He reports sinus congestion, mild postnasal drainage, nausea, and productive cough. He also states that he has been feeling "feverish" intermittently for the past 4 days. He denies any associated wheezing, shortness of breath, rhinorrhea, sore throat, generalized body aches, vomiting, diarrhea or abdominal pain. He denies any known ill contacts or recent travel out of the country. History of heart disease or lung disease. MD Complaint: cough, nasal congestion, other (Sinus pressure) -: Gradual, days(s) (4) - Related Data Home Medications Medication Instructions Recorded Confirmed Last Taken Mirtazapine 15 mg PO QHS 09/26/18 12/22/19 2 Days Ago ~12/20/19 7.5 hydroCHLOROthiazide [HCTZ] 25 mg PO DAILY 09/26/18 12/22/19 2 Days Ago ~12/20/19 25 Previous Rx's Medication Instructions Recorded Last Taken Type Meloxicam [Mobic] 15 mg PO DAILY #10 tablet 05/28/20 Unknown Rx Azithromycin [Zithromax Z-MIKEY] 250 mg PO DAILY #1 pack 09/14/20 Unknown Rx Benzonatate [Tessalon Perles] 100 mg PO Q8HR PRN #30 capsule 09/14/20 Unknown Rx Cetirizine HCl [Zyrtec 10mg tab] 10 mg PO DAILY #30 tablet 09/14/20 Unknown Rx Fluticasone [Flonase] 2 spray NS QDAY #1 bottle 09/14/20 Unknown Rx Allergies Allergy/AdvReac Type Severity Reaction Status Date / Time No Known Allergies Allergy Verified 09/26/18 17:35 ED Review of Systems ROS: Stated complaint: NAUSEA/CONGESTION Other details as noted in HPI Comment: All other systems reviewed and negative Constitutional: fever (Subjective). denies: chills Eyes: denies: eye pain, eye discharge, vision change ENT: denies: ear pain, throat pain Respiratory: cough. denies: orthopnea, shortness of breath, SOB with exertion, SOB at rest, stridor, wheezing Cardiovascular: denies: chest pain, palpitations, dyspnea on exertion, orthopnea, edema, syncope, paroxysmal nocturnal dyspnea Gastrointestinal: denies: abdominal pain, nausea, vomiting, diarrhea, constipation, hematemesis Genitourinary: denies: urgency, dysuria, frequency, hematuria, discharge, testicular pain, testicular mass Musculoskeletal: denies: back pain, arthralgia, myalgia Skin: denies: rash, lesions, change in color, pruritus Neurological: denies: headache, weakness, paresthesias, confusion, abnormal gait, vertigo Psychiatric: denies: anxiety, depression, auditory hallucinations, visual hallucinations, homicidal thoughts, suicidal thoughts Hematological/Lymphatic: denies: easy bleeding, easy bruising, swollen glands ED Past Medical Hx - Past Medical History Previous Medical History?: Yes Hx Hypertension: Yes Hx Heart Attack/AMI: No Hx Liver Disease: No Hx Renal Disease: No Hx Arthritis: Yes Hx COPD: No Hx HIV: No - Surgical History Past Surgical History?: Yes - Social History Smoking Status: Never Smoker Substance Use Type: None - Medications Home Medications: Home Medications Medication Instructions Recorded Confirmed Last Taken Type Mirtazapine 15 mg PO QHS 09/26/18 12/22/19 2 Days Ago History ~12/20/19 7.5 hydroCHLOROthiazide [HCTZ] 25 mg PO DAILY 09/26/18 12/22/19 2 Days Ago History ~12/20/19 25 Meloxicam [Mobic] 15 mg PO DAILY #10 tablet 05/28/20 Unknown Rx Azithromycin [Zithromax Z-MIKEY] 250 mg PO DAILY #1 pack 09/14/20 Unknown Rx Benzonatate [Tessalon Perles] 100 mg PO Q8HR PRN #30 capsule 09/14/20 Unknown Rx Cetirizine HCl [Zyrtec 10mg tab] 10 mg PO DAILY #30 tablet 09/14/20 Unknown Rx Fluticasone [Flonase] 2 spray NS QDAY #1 bottle 09/14/20 Unknown Rx ED Physical Exam - General Limitations: No Limitations General appearance: alert, in no apparent distress - Head Head exam: Present: atraumatic, normocephalic, normal inspection - Eye Eye exam: Present: normal appearance, PERRL, EOMI Pupils: Present: normal accommodation - ENT ENT exam: Present: normal exam, mucous membranes moist - Expanded ENT Exam Expanded TM/Canal exam: Effusion: Right TM, Left TM Mouth exam: Present: normal external inspection Throat exam: Positive: normal inspection - Neck Neck exam: Present: normal inspection, lymphadenopathy (Anterior cervical mild) - Respiratory Respiratory exam: Present: normal lung sounds bilaterally. Absent: respiratory distress - Cardiovascular Cardiovascular Exam: Present: regular rate, normal rhythm, normal heart sounds - GI/Abdominal GI/Abdominal exam: Present: soft. Absent: tenderness, guarding, rebound - Extremities Exam Extremities exam: Present: normal inspection. Absent: pedal edema, calf tenderness - Neurological Exam Neurological exam: Present: alert, oriented X3, CN II-XII intact, normal gait - Psychiatric Psychiatric exam: Present: normal affect, normal mood - Skin Skin exam: Present: intact ED Course Vital Signs 09/14/20 19:34 Temperature 98.7 F Pulse Rate 72 Respiratory 20 Rate Blood Pressure 135/60 O2 Sat by Pulse 100 Oximetry ED Medical Decision Making - Radiology Data Radiology results: report reviewed Patient: CRISTAIN CARR MR#: [id number] : 1945 Acct:[id number] Age/Sex: 75 / M ADM Date: 09/14/20 Loc: ED Attending Dr: Ordering Physician: ZIGGY MOSQUERA Date of Service: 09/14/20 Procedure(s): XR chest routine 2V Accession Number(s): [id number] cc: ZIGGY MOSQUERA Fluoro Time In Minutes: CHEST 2 VIEWS INDICATION / CLINICAL INFORMATION: Cough. COMPARISON: 03/06/2020 FINDINGS: SUPPORT DEVICES: None. HEART / MEDIASTINUM: No significant abnormality. LUNGS / PLEURA: No significant pulmonary or pleural abnormality. No pneumothorax. ADDITIONAL FINDINGS: There may be trace bilateral pleural effusions Signer Name: Talha Webster MD Signed: 09/14/2020 8:17 PM Workstation Name: [id number] Transcribed By: INGRIS Dictated By: GIOVANY WEBSTER MD Electronically Authenticated By: GIOVANY WEBSTER MD Signed Date/Time: 09/14/202016 DD/ 15 TD/TT: - Medical Decision Making Chest x-ray reviewed and shows -- SUPPORT DEVICES: None. HEART / MEDIASTINUM: No significant abnormality. LUNGS / PLEURA: No significant pulmonary or pleural abnormality. No pneumothorax. ADDITIONAL FINDINGS: There may be trace bilateral pleural effusions The patient is resting comfortably, is alert and in distress. He has normal mental status and is neurologically intact and normal gait in ED The patient appears well and there is no significant dehydration. There is no respiratory distress and no signs of systemic toxicity on exam. CXR show trace pleural effusion but otherwise nothing acute. The patient's history, exam, diagnostic testing and current condition do not demonstrate an infectious process such as severe pneumonia, CHF, retropharyngeal abscess, meningitis, sepsis or other serious bacterial infection requiring further testing, treatment, consultation or admission at this time. His Vital signs are stable. Case and imaging results discussed with Dr Cherry Klein - trace pleural effusion likely non specific - recommend d/c pt home on abx and having pt get outpatient COVID test. Discussed cxr results, suspected dx and tx plan with patient. He expressed understanding of instructions and agree with plan. The patient's condition is stable and appropriate for discharge. The patient will pursue further outpatient evaluation with the primary care physician. Critical care attestation.: If time is entered above; I have spent that time in minutes in the direct care of this critically ill patient, excluding procedure time. ED Disposition Clinical Impression: Sinusitis, Bronchitis Disposition: DC-01 TO HOME OR SELFCARE Is pt being admited?: No Does the pt Need Aspirin: No Condition: Stable Instructions: Sinusitis, Adult, [id number], Acute Bronchitis, Adult, Chronic Bronchitis (ED) Additional Instructions: Take the medications as prescribed. I recommend that you get an outpatient COVID 19 test at one of the local clinics or [facility] drive through. You can take tylenol or motrin for pain or fever. Return to ED immediately if you develop any difficulty breathing, shortness of breath, fever 100.5 or higher, or swelling Prescriptions: Fluticasone [Flonase] 2 spray NS QDAY #1 bottle Benzonatate [Tessalon Perles] 100 mg PO Q8HR PRN #30 capsule PRN Reason: Cough Azithromycin [Zithromax Z-MIKEY] 250 mg PO DAILY #1 pack Cetirizine HCl [Zyrtec 10mg tab] 10 mg PO DAILY #30 tablet Referrals: JENNIFER MARTINES MD [Primary Care Provider] - 3-5 Days Time of Disposition: 20:44
--- NOTE | 2020-09-14 20:21 | XRay Report ---
CHEST 2 VIEWS INDICATION / CLINICAL INFORMATION: Cough. COMPARISON: 03/06/2020 FINDINGS: SUPPORT DEVICES: None. HEART / MEDIASTINUM: No significant abnormality. LUNGS / PLEURA: No significant pulmonary or pleural abnormality. No pneumothorax. ADDITIONAL FINDINGS: There may be trace bilateral pleural effusions Signer Name: Talha Webster MD Signed: 09/14/2020 8:17 PM Workstation Name: [id number]
== END 2020-09-14 20:55 | disposition home or self-care (01) ==
LOC: ED 19:08
DX: J40 Bronchitis, not specified as acute or chronic (principal); J32.9 Chronic sinusitis, unspecified; I10 Essential (primary) hypertension; M19.91 Primary osteoarthritis, unspecified site; Z79.2 Long term (current) use of antibiotics; Z79.899 Other long term (current) drug therapy
CPT/HCPCS: 71046; Q0162

== ENCOUNTER 2021-10-19 18:05 | Emergency (ER) | payer MEDICARE ==
[2021-10-19 21:11] LABS: Alanine Aminotransferase 15 units/L (7-56); Albumin 4.3 g/dL (3.9-5); BUN/Creatinine Ratio 13; Blood Urea Nitrogen 10 mg/dL (9-20); Calcium 8.9 mg/dL (8.4-10.2); Hemolysis Index 2
[2021-10-19 21:31] LABS: Hematocrit 35.1 % (35.5-45.6); Hemoglobin 10.1 gm/dl (11.8-15.2); Mean Corpuscular HGB Conc 29 % (32-34); Mean Corpuscular Volume 62 fl (84-94); Platelet Count 305 K/mm3 (140-440); Red Blood Count 5.64 M/mm3 (3.65-5.03); Red Cell Distribution Width 19.8 % (13.2-15.2)
[2021-10-19] MEDS ORDERED: predniSONE 20 MG TAB PO ONE (21:53)
[2021-10-19] MEDS ORDERED: KETOROLAC 30 MG/1 ML INJ IM ONE (21:53)
[2021-10-19 22:14] LABS: Total Cells Counted 100
[2021-10-19 22:15] LABS: Anisocytosis 2+; Hypochromasia 1+; Platelet Estimate Consistent w Auto; Target Cells Few
--- NOTE | 2021-10-19 23:20 | Emergency Department Report ---
ED Extremity Problem HPI - General Chief complaint: Extremity Injury, Lower Stated complaint: BOTH KNEE PAIN Source: patient Mode of arrival: Ambulatory Limitations: Physical Limitation - History of Present Illness Initial comments: Patient is a 76-year-old -[place] male with a history of hypertension and chronic osteoarthritis who presents to the ED with complaint of acute exacerbation of his chronic pain characterized by bilateral knee pain for the last 1 week. Patient states that he has been taking Tylenol as needed for pain with no relief. Patient states that the pain is especially worse at rest or with movement. Patient states that his bilateral knee pain is consistent with chronic osteoarthritis pain that he has had for many years. Patient denies shortness of breath, traumatic injury, fall, numbness and tingling or weakness of lower extremities bilaterally, fever, chills, cough, sore throat, dizziness, back pain or hip pain. MD Complaint: extremity pain (Bilateral knee pain), joint paint (Chronic bilateral knee pain due to chronic osteoarthritis) -: Gradual, year(s) (30) Location: bilateral lower extremity (Bilateral knee pain), knee (Bilateral knee pain due to a chronic osteoarthritis) History of Same: Yes (History of chronic osteoarthritis) -: Yes arthralgia (Bilateral knee pain) Radiation: none Severity scale (0 -10): 4 Quality: aching, dull Consistency: constant Improves with: nothing Worsens with: weight bearing, walking, exertion, palpation Associated Symptoms: denies other symptoms, arthralgias (Chronic osteoarthritis). denies: chest pain, shortness of breath, fever, myalgias, rash - Related Data Home Medications Medication Instructions Recorded Confirmed Last Taken Mirtazapine 15 mg PO QHS 09/26/18 12/22/19 2 Days Ago ~12/20/19 7.5 hydroCHLOROthiazide [HCTZ] 25 mg PO DAILY 09/26/18 12/22/19 2 Days Ago ~12/20/19 25 Previous Rx's Medication Instructions Recorded Last Taken Type Meloxicam [Mobic] 15 mg PO DAILY #10 tablet 05/28/20 Unknown Rx Azithromycin [Zithromax Z-MIKEY] 250 mg PO DAILY #1 pack 09/14/20 Unknown Rx Benzonatate [Tessalon Perles] 100 mg PO Q8HR PRN #30 capsule 09/14/20 Unknown Rx Cetirizine HCl [Zyrtec 10mg tab] 10 mg PO DAILY #30 tablet 09/14/20 Unknown Rx Fluticasone [Flonase] 2 spray NS QDAY #1 bottle 09/14/20 Unknown Rx Naproxen 500 mg PO Q12H PRN #20 tab 10/19/21 Unknown Rx Allergies Allergy/AdvReac Type Severity Reaction Status Date / Time No Known Allergies Allergy Verified 09/26/18 17:35 ED Review of Systems ROS: Stated complaint: BOTH KNEE PAIN Other details as noted in HPI Constitutional: denies: chills, fever Eyes: denies: eye pain, eye discharge, vision change ENT: denies: ear pain, throat pain Respiratory: denies: cough, shortness of breath, wheezing Cardiovascular: denies: chest pain, palpitations Endocrine: no symptoms reported Gastrointestinal: denies: abdominal pain, nausea, diarrhea Genitourinary: denies: urgency, dysuria Musculoskeletal: arthralgia. denies: back pain, joint swelling Skin: denies: rash, lesions Neurological: denies: headache, weakness, paresthesias Psychiatric: denies: anxiety, depression Hematological/Lymphatic: denies: easy bleeding, easy bruising ED Past Medical Hx - Past Medical History Previous Medical History?: Yes (Bilateral knee pain) Hx Hypertension: Yes Hx Heart Attack/AMI: No Hx Liver Disease: No Hx Renal Disease: No Hx Arthritis: Yes Hx COPD: No Hx HIV: No - Surgical History Past Surgical History?: Yes Additional Surgical History: Neck lump/fatty tissue - Social History Smoking Status: Never Smoker Substance Use Type: None - Medications Home Medications: Home Medications Medication Instructions Recorded Confirmed Last Taken Type Mirtazapine 15 mg PO QHS 09/26/18 12/22/19 2 Days Ago History ~12/20/19 7.5 hydroCHLOROthiazide [HCTZ] 25 mg PO DAILY 09/26/18 12/22/19 2 Days Ago History ~12/20/19 25 Meloxicam [Mobic] 15 mg PO DAILY #10 tablet 05/28/20 Unknown Rx Azithromycin [Zithromax Z-MIKEY] 250 mg PO DAILY #1 pack 09/14/20 Unknown Rx Benzonatate [Tessalon Perles] 100 mg PO Q8HR PRN #30 capsule 09/14/20 Unknown Rx Cetirizine HCl [Zyrtec 10mg tab] 10 mg PO DAILY #30 tablet 09/14/20 Unknown Rx Fluticasone [Flonase] 2 spray NS QDAY #1 bottle 09/14/20 Unknown Rx Naproxen 500 mg PO Q12H PRN #20 tab 10/19/21 Unknown Rx ED Physical Exam - General Limitations: Physical Limitation General appearance: alert, in no apparent distress - Head Head exam: Present: atraumatic, normocephalic, normal inspection - Eye Eye exam: Present: normal appearance, PERRL, EOMI Pupils: Present: normal accommodation - ENT ENT exam: Present: normal exam, normal orophraynx, mucous membranes moist, TM's normal bilaterally, normal external ear exam - Neck Neck exam: Present: normal inspection, full ROM. Absent: tenderness - Respiratory Respiratory exam: Present: normal lung sounds bilaterally. Absent: respiratory distress, wheezes, rales, rhonchi, chest wall tenderness, accessory muscle use, decreased breath sounds, prolonged expiratory - Cardiovascular Cardiovascular Exam: Present: regular rate, normal rhythm, normal heart sounds. Absent: systolic murmur, diastolic murmur, rubs, gallop - GI/Abdominal GI/Abdominal exam: Present: soft, normal bowel sounds. Absent: tenderness, guarding, rebound, hyperactive bowel sounds, hypoactive bowel sounds, organomegaly, mass - Extremities Exam Extremities exam: Present: normal inspection, full ROM, tenderness (Palpable bilateral knee joint tenderness with mild crepitus). Absent: normal capillary refill, pedal edema, joint swelling, calf tenderness - Back Exam Back exam: Present: normal inspection, full ROM. Absent: tenderness, CVA tenderness (R), CVA tenderness (L), muscle spasm, paraspinal tenderness, vertebral tenderness - Neurological Exam Neurological exam: Present: alert, oriented X3, CN II-XII intact, normal gait, reflexes normal - Psychiatric Psychiatric exam: Present: normal affect, normal mood - Skin Skin exam: Present: warm, dry, intact, normal color. Absent: rash ED Course Vital Signs 10/19/21 18:11 Temperature 97.9 F Pulse Rate 86 Respiratory 18 Rate Blood Pressure 133/78 O2 Sat by Pulse 100 Oximetry ED Medical Decision Making - Lab Data Result diagrams: 10/19/21 20:37 10/19/21 20:37 - Medical Decision Making This is a 76-year-old -[place] male with a history of hypertension and chronic osteoarthritis who presents to the ED with complaint of acute exacerbation of his chronic pain characterized by bilateral knee pain for the last 1 week. Patient states that he has been taking Tylenol as needed for pain with no relief. Patient states that the pain is especially worse at rest or with movement. Patient states that his bilateral knee pain is consistent with chronic osteoarthritis pain that he has had for many years. In the ED, patient is alert and oriented x3 and is not in any distress. Patient lab test results are reviewed and are all nonactionable. Patient was treated for pain in the ED and discharged home and advised to follow-up with his primary care physician in 5 to 7 days for reevaluation. Patient was advised return to the ED immediately if symptoms get worse. - Differential Diagnosis Chronic pain; chronic osteoarthritis; chronic knee pain; Critical care attestation.: If time is entered above; I have spent that time in minutes in the direct care of this critically ill patient, excluding procedure time. ED Disposition Clinical Impression: Chronic osteoarthritis, Chronic pain of both knees Disposition: 01 HOME / SELF CARE / HOMELESS Is pt being admited?: No Does the pt Need Aspirin: No Condition: Stable Instructions: Chronic Knee Pain, Adult, [id number], Osteoarthritis, Arthritis, [id number] Additional Instructions: Take medication with food, drink plenty of fluids and follow-up with your primary care physician in 7 to 10 days for reevaluation. Return to the ED immediately if symptoms get worse. Prescriptions: Naproxen 500 mg PO Q12H PRN #20 tab PRN Reason: Pain , Severe (7-10) Referrals: ANAIS COKER MD [Primary Care Provider] - 3-5 Days Time of Disposition: 23:21 Print Language: PAK[place]
[2021-10-20 01:24] VITALS: BP 130/78
== END 2021-10-20 01:23 | disposition home or self-care (01) ==
LOC: ED 18:05
DX: M17.0 Bilateral primary osteoarthritis of knee (principal); G89.29 Other chronic pain; M25.562 Pain in left knee; M25.561 Pain in right knee; I10 Essential (primary) hypertension; Z98.890 Other specified postprocedural states
CPT/HCPCS: 36415; 80053; 85007; 85025; 99283; J1885